=== PATIENT | female | born 1980 | race Caucasian/White ===

== ENCOUNTER 2018-09-09 23:43 | Emergency (ER) | payer MEDICAID ==
[2018-09-10 02:09] LABS: ADD MAN DIFF? NO
[2018-09-10 02:11] LABS: WHITE BLOOD COUNT 8.8 10^3/ul (4.8-10.8)
[2018-09-10 02:11] LABS: BASOPHILS % 0.5 % (0.0-2.0); EOSINOPHILS # 0.2 10^3/ul (0.0-0.5); EOSINOPHILS % 2.5 % (0.0-7.0); HEMATOCRIT 37.5 % (37.0-47.0); HEMOGLOBIN 12.4 g/dl (12.0-16.0); LYMPHOCYTES # 2.9 10^3/ul (0.8-2.9); LYMPHOCYTES % 32.8 % (15.0-51.0); MEAN CORPUSCULAR HEMOGLOBIN 26.6 pg (29.0-33.0); MEAN CORPUSCULAR HGB CONC 33.1 g/dl (32.0-37.0); MEAN CORPUSCULAR VOLUME 80.3 fl (82.0-101.0); MEAN PLATELET VOLUME 10.3 fl (7.4-10.4); MONOCYTE # 0.6 10^3/ul (0.3-0.9); MONOCYTES % 6.8 % (0.0-11.0); NEUTROPHILS % 57.2 % (39.0-77.0); PLATELET COUNT 235 10^3/UL (140-415); RED BLOOD COUNT 4.67 10^6/ul (4.20-5.40)
[2018-09-10 02:15] LABS: ADD UMIC YES; UR ASCORBIC ACID NEGATIVE (NEGATIVE); UR BACTERIA FEW /HPF (NONE SEEN); UR BILIRUBIN (Dip) NEGATIVE (NEGATIVE); UR BLOOD (Dip) 3+ mg/dL (NEGATIVE); UR CLARITY SLIGHTLY CLOUDY (CLEAR); UR COLOR YELLOW (YELLOW); UR GLUCOSE (Dip) NEGATIVE (NEGATIVE); UR KETONES (Dip) NEGATIVE (NEGATIVE); UR LEUKOCYTE ESTERASE (Dip) TRACE Leu/ul (NEGATIVE); UR NITRITE (Dip) NEGATIVE (NEGATIVE); UR RBC 4 /HPF (0-5); UR SPECIFIC GRAVITY (Dip) 1.006 (1.003-1.030); UR SQUAMOUS EPITHELIAL CELL FEW /HPF (FEW); UR TOTAL PROTEIN (Dip) NEGATIVE (NEGATIVE); UR UROBILINOGEN (Dip) NEGATIVE (NEGATIVE); UR WBC 3 /HPF (0-5)
[2018-09-10 02:31] LABS: ANION GAP 11 (5-13); BLOOD UREA NITROGEN 12 mg/dl (7-20); CALCIUM 9.8 mg/dl (8.4-10.2); CARBON DIOXIDE 25 mmol/L (21-31); CHLORIDE 106 mmol/L (97-110); CREATININE 0.58 mg/dl (0.44-1.00); Estimated GFR > 60 mL/min (>60); GLUCOSE 109 mg/dl (70-220); POTASSIUM 3.7 mmol/L (3.5-5.1); SODIUM 142 mmol/L (135-144)
[2018-09-10] MEDS: CEPHALEXIN 500 MG CAP PO (04:20)
== END 2018-09-10 04:27 | disposition home or self-care (01) ==
LOC: FTE 23:43
DX: O23.11 Infections of bladder in pregnancy, first trimester (principal); Z3A.01 Less than 8 weeks gestation of pregnancy
CPT/HCPCS: 36415; 76801; 76817; 80048; 81001; 84702; 85025; 86900; 86901; 99284-25

== ENCOUNTER 2018-09-14 17:40 | Emergency (ER) | payer MEDICAID | END 2018-09-14 20:52 | disposition home or self-care (01) | LOC: FTE 17:40 | DX: O20.0 Threatened abortion (principal); Z3A.01 Less than 8 weeks gestation of pregnancy | CPT/HCPCS: 76801; 76817; 84702; 99284-25 ==

== ENCOUNTER 2018-09-24 13:33 | Emergency (ER) | payer MEDICAID ==
[2018-09-24 14:06] LABS: ADD MAN DIFF? NO
[2018-09-24 14:10] LABS: WHITE BLOOD COUNT 7.9 10^3/ul (4.8-10.8)
[2018-09-24 14:10] LABS: BASOPHILS % 0.5 % (0.0-2.0); EOSINOPHILS # 0.1 10^3/ul (0.0-0.5); EOSINOPHILS % 1.5 % (0.0-7.0); HEMOGLOBIN 13.2 g/dl (12.0-16.0); LYMPHOCYTES # 2.4 10^3/ul (0.8-2.9); MEAN CORPUSCULAR HEMOGLOBIN 26.8 pg (29.0-33.0); MEAN CORPUSCULAR VOLUME 81.1 fl (82.0-101.0); MONOCYTE # 0.5 10^3/ul (0.3-0.9); MONOCYTES % 6.7 % (0.0-11.0); NEUTROPHIL # 4.8 10^3/ul (1.6-7.5); NEUTROPHILS % 60.8 % (39.0-77.0); PLATELET COUNT 281 10^3/UL (140-415); RED BLOOD COUNT 4.93 10^6/ul (4.20-5.40); RED CELL DISTRIBUTION WIDTH 13.7 % (11.5-14.5)
[2018-09-24 14:16] LABS: ADD UMIC YES; UR ASCORBIC ACID NEGATIVE (NEGATIVE); UR BILIRUBIN (Dip) NEGATIVE (NEGATIVE); UR BLOOD (Dip) 1+ mg/dL (NEGATIVE); UR CLARITY CLEAR (CLEAR); UR COLOR YELLOW (YELLOW); UR GLUCOSE (Dip) NEGATIVE (NEGATIVE); UR KETONES (Dip) NEGATIVE (NEGATIVE); UR LEUKOCYTE ESTERASE (Dip) NEGATIVE Leu/ul (NEGATIVE); UR NITRITE (Dip) NEGATIVE (NEGATIVE); UR RBC 1 /HPF (0-5); UR SPECIFIC GRAVITY (Dip) 1.008 (1.003-1.030); UR SQUAMOUS EPITHELIAL CELL FEW /HPF (FEW); UR TOTAL PROTEIN (Dip) NEGATIVE (NEGATIVE); UR UROBILINOGEN (Dip) NEGATIVE (NEGATIVE); UR WBC 1 /HPF (0-5)
== END 2018-09-24 15:30 | disposition home or self-care (01) ==
LOC: FTE 13:33
DX: O20.0 Threatened abortion (principal); Z3A.01 Less than 8 weeks gestation of pregnancy
CPT/HCPCS: 76801; 76817; 81001; 84702; 85025; 86900; 86901; 99284-25